=== PATIENT | female | born 1975 | race Caucasian/White ===

== ENCOUNTER 2016-06-17 09:20 | Observation (INO) | payer OTHER ==
[~2016-06-17 09:20] MED LIST: BUPIVACAINE/EPI 0.5% 30 ML SDV ONE; LR 1,000 ML IV ONE; PHENAZOPYRIDINE HCL 200 MG TAB PO ONE; SKIN ADHESIVE (DERMABOND) 1 EACH TP ONE; ceFAZolin 2 GM/DEXTROSE 100 ML IV ONE
[2016-06-17] MEDS ORDERED: LIDOCAINE 1% 2 ML INJ ONE (10:04)
[2016-06-17] MEDS ORDERED: LIDOCAINE 1% 5 ML SDV ID PRN (10:13)
[2016-06-17] MEDS ORDERED: LR 1,000 ML IV ONE (10:13)
[2016-06-17] MEDS ORDERED: PHENAZOPYRIDINE HCL 200 MG TAB ONE (10:17)
[2016-06-17] MEDS ORDERED: CEFAZOLIN 2 GM/DEXTROSE/100 ML BAG IV ONE (10:17)
[2016-06-17] MEDS ORDERED: SCOPOLAMINE HYDROBROMIDE 1.5 MG PATCH TD ONE (10:47)
[2016-06-17] MEDS ORDERED: MIDAZOLAM 2 MG/2 ML VIAL ONE (10:51)
[2016-06-17] MEDS ORDERED: REMIFENTANIL HCL 1 MG VIAL ONE (10:57)
[2016-06-17] MEDS ORDERED: fentaNYL 250 MCG/5 ML INJ ONE (10:57)
[2016-06-17] MEDS ORDERED: PROPOFOL/EMULSION 500 MG/50 ML BOTTLE IV ONE (10:57)
[2016-06-17] MEDS ORDERED: ROCURONIUM 50 MG/5 ML VIAL ONE ×2 (10:59→12:54)
[2016-06-17] MEDS ORDERED: PROPOFOL 200 MG/20 ML VIAL ONE ×2 (12:51)
[2016-06-17] MEDS ORDERED: ONDANSETRON 4 MG/2 ML VIAL ONE ×2 (13:30→14:03)
[2016-06-17] MEDS ORDERED: KETOROLAC 30 MG/1 ML SDV ONE (13:30)
[2016-06-17] MEDS ORDERED: SUGAMMADEX SODIUM 200 MG/2 ML VIAL IVP ONE (13:30)
[2016-06-17] MEDS ORDERED: SKIN ADHESIVE (DERMABOND) 1 EACH TP ONE (13:43)
[2016-06-17] MEDS ORDERED: fentaNYL 100 MCG/2 ML INJ ONE ×2 (14:03→14:30)
[2016-06-17] MEDS ORDERED: HYDROmorphONE/DILAUDID 1 MG/ML SYR ONE ×2 (14:03→14:30)
[2016-06-17] MEDS ORDERED: ONDANSETRON 4 MG/2 ML VIAL IVP PRN (14:14)
--- NOTE | 2016-06-17 14:23 | POSTOPPROG ---
Post Op Note Date of Operation: 06/17/16 Surgeon: Murali Salazar Whale Trainer: Jacki Rousseau Anesthesia: GET(General Endotracheal) Pre-op Diagnosis: Endometriosis, menorrhagia Post-op Diagnosis: Same plus severe pelvic adhesions Procedure: Robotic hyst/BSO, excision of endo, bilat ureterolysis, cysto Findings: Severe endo, both ureters function at end of case Inf/Abcess present in the surg proc area at time of surgery?: No EBL: Minimal Complications: None Specimen(s): uterus, bilat tubes and ovaries, endo
[2016-06-17] MEDS ORDERED: LR 1,000 ML IV SCH (14:30)
[2016-06-17] MEDS: HYDROCODONE/APAP 5/325 TAB PO PRN ×2 (16:42→20:45)
--- NOTE | 2016-06-17 19:33 | GOP ---
[f rep st] OPERATIVE REPORT DATE OF OPERATION: 06/17/2016 SURGEON: Murali Salazar MD SENIOR PROCUREMENT MANAGER: Jacki Rousseau C.F.A. ANESTHESIA: General. PREOPERATIVE DIAGNOSIS: 1. Menorrhagia. 2. Dysmenorrhea. 3. Dyschezia. 4. Uterine prolapse. POSTOPERATIVE DIAGNOSIS: 1. Menorrhagia. 2. Dysmenorrhea. 3. Dyschezia. 4. Rectal lesion. PROCEDURE PERFORMED: 1. Robotic-assisted total laparoscopic hysterectomy. 2. Bilateral salpingo-oophorectomy. 3. Bilateral ureterolysis. 4. Bilateral uterosacral ligament colpopexy. 5. Excision of rectal lesion. 6. Cystoscopy. FINDINGS: Severe endometriosis of posterior cul-de-sac with a frozen pelvis. SPECIMENS: Uterus, cervix, bilateral tubes and ovaries, with pelvic peritoneum and rectal lesion. ESTIMATED BLOOD LOSS: Was less than 20 mL. DESCRIPTION OF PROCEDURE: The patient was taken to the operating room. She was identified. General anesthesia was administered and found to be adequate. She was placed in the lithotomy position and prepared and draped in the normal sterile fashion. A Pacheco catheter was placed in her bladder. A VCare uterine manipulator was placed into the endometrial cavity and sutured to the cervix. A 1 cm infraumbilical incision was made with a scalpel. The Veress needle with the CO2 gas flowing was advanced into the peritoneal cavity. The abdomen was then insufflated with carbon dioxide gas. The 12 mm trocar followed by the laparoscope were then inserted. The upper abdomen was unremarkable. There was no evidence of endometriosis on either diaphragm, liver, gallbladder, stomach or upper bowel. Two lateral ports were placed, 1 in the right and 1 in the left under direct visualization. She then was placed in Trendelenburg position and the da Radha robot docked on the left side. The instruments were then brought into the abdominal cavity under direct visualization. The rectum was adherent to the posterior uterus and cervix, as well as the left adnexa. Both adnexa were adherent to the posterior uterus as well as the ovarian fossa and the ureters. As a result, a bilateral ureterolysis was required. The peritoneum at the pelvic brim on the left was incised. The ureter was gently dissected free. The ureter was dissected all the way down to the bladder. Once this was accomplished, the overlying peritoneum and endometriosis could be excised. The left adnexa could be excised from the sidewall as well. The infundibulopelvic vessels were cauterized and transected. The anterior leaf of the broad ligament was then incised over the left uterine vessels and across the cervix. The bladder was gently dissected off the cervix and upper vagina. The left uterine artery was transected just above the left ureter. The exact same procedure was performed on the patient's right side, also requiring a complete ureterolysis from the pelvic brim to the bladder. The rectum was then gently dissected off the posterior uterus and cervix. Once this was accomplished, a circumferential colpotomy incision was then made with the hot sadiq. Specimens were then removed through the vagina. The vaginal cuff was then closed with a running suture of 0 V-Loc 180. A bilateral uterosacral ligament colpopexy was performed by attaching the lateral aspect of the vaginal cuff to the ipsilateral uterosacral ligaments near their insertion into the coccygeal-sacrospinous ligament complexes. The rectal lesion had been excised prior to closing the vaginal cuff. This extended approximately 50% through the muscularis. The pelvis was then copiously irrigated with sterile saline and hemostasis was present. The robot was then undocked. The fascia was closed with 0 Vicryl, skin with 4-0 Monocryl and surgical adhesive. Cystoscopy was then performed. Both ureters had vigorous jets of urine. No evidence of bladder or urethral injury seen. No pathology was seen within the bladder. Anesthesia was reversed and the patient taken the PACU awake, in stable condition. COMPLICATIONS: None. DISPOSITION: Patient stable to PACU. /[id number]/MODL MTDD
[2016-06-17] MEDS: KETOROLAC 30 MG/1 ML SDV IVP SCH (19:40)
[2016-06-18] MEDS: HYDROCODONE/APAP 5/325 TAB PO PRN ×3 (00:46→10:10)
[2016-06-18 01:11] VITALS: RESP 16
[2016-06-18] MEDS: KETOROLAC 30 MG/1 ML SDV IVP SCH ×3 (01:34→16:04)
[2016-06-18 05:52] LABS: HEMATOCRIT 34.5 % (38.0-47.0); HEMOGLOBIN 11.7 g/dL (12.6-16.3)
[2016-06-18 07:39] VITALS: BP 121/76; PULSE 70; TEMP 97.4; O2SAT 92
[2016-06-18] MEDS ORDERED: PNEUMOCOCCAL 0.5ML VACCINE VIAL IM ONE ×2 (07:59→10:30)
[2016-06-18] MEDS ORDERED: SERTRALINE HCL 100 MG TAB PO SCH (09:00)
--- NOTE | 2016-06-18 12:56 | GDS ---
[f rep st] DISCHARGE SUMMARY DISCHARGE DIAGNOSES: 1. Endometriosis. 2. Dysmenorrhea. 3. Uterine prolapse. 4. Dyschezia. PROCEDURES: 1. Robotic-assisted total laparoscopic hysterectomy and bilateral salpingo-oophorectomy. 2. Bilateral ureterolysis. 3. Bilateral uterosacral ligament colpopexy. 4. Excision of rectal lesion. 5. Cystoscopy. HISTORY: This patient has a long history of painful and heavy menses. She previously underwent an endometrial ablation procedure. She had failed medical management. As a result, she was taken to [facility] operating room on 06/17/2016, where she underwent the above-mentioned procedures, which she glynn ated well without complications. She was found to have stage IV endometriosis. Her postoperative course was uneventful. The morning after surgery she was ambulating, voiding, and tolerating a general diet. She was discharged home on postoperative day #1 in good condition. Med ications included Malone and ibuprofen for pain. She was also started on Prempro 5/2.5 for hormone r eplacement. She is to follow up in the office 2 weeks after discharge. /[id number]/MODL
== END 2016-06-18 12:30 | disposition home or self-care (01) ==
LOC: INTOOBSV 09:20 → F3E 09:20 → FOB 15:55
PROVIDERS: ADMIT Obstetrics & Gynecology; ATTEND Obstetrics & Gynecology
PROC: 0DBP4ZZ Excision of Rectum, Percutaneous Endoscopic Approach (ICD-10-PCS; principal; 2016-06-17 10:45)
PROC: 0UT74ZZ Resection of Bilateral Fallopian Tubes, Percutaneous Endoscopic Approach (ICD-10-PCS; principal; 2016-06-17 10:45)
PROC: 0UT94ZZ Resection of Uterus, Percutaneous Endoscopic Approach (ICD-10-PCS; principal; 2016-06-17 10:45)
PROC: 0UT24ZZ Resection of Bilateral Ovaries, Percutaneous Endoscopic Approach (ICD-10-PCS; principal; 2016-06-17 10:45)
PROC: 0UTC4ZZ Resection of Cervix, Percutaneous Endoscopic Approach (ICD-10-PCS; principal; 2016-06-17 10:45)
PROC: 0UUG4JZ Supplement Vagina with Synthetic Substitute, Percutaneous Endoscopic Approach (ICD-10-PCS; principal; 2016-06-17 10:45)
DX: N80.1 Endometriosis of ovary (principal); N94.6 Dysmenorrhea, unspecified; N92.6 Irregular menstruation, unspecified; N81.4 Uterovaginal prolapse, unspecified; K59.00 Constipation, unspecified; N39.3 Stress incontinence (female) (male); Z87.410 Personal history of cervical dysplasia; Z23 Encounter for immunization
CPT/HCPCS: 45499; 57425; 58571; 90471; C1765; G0378; C1771; G0009; J0690; J1170; J1885; J2250; J2405; J2704; J3010